=== PATIENT | male | born 1950 | race Caucasian/White ===

== ENCOUNTER 2017-04-20 15:46 | Inpatient (IN) | payer MEDICARE, OTHER ==
[~2017-04-20] VITALS: Ht 177.8 cm; Wt 110.0 kg
--- NOTE | ~2017-04-20 | CATH ---
Cardiac Diagnostic Report Demographics Patient Name RADHA Jack Gender Male Date of 1950 Age 67 year(s) Patient Number [id number] Date of Study 04/20/2017 Visit Number [id number] Room Number G6[address] [place] [id number] Ht 177.8 cm Wt 111.9 kg Referring [facility] Hugo Primary Physician Physician Paty Stroud [facility] Performing Paty Secondary Physician Physician Maximus Diagnostic Paty Assisting Physician Physician Maximus Interventional Physician Paint Line Production Supervisor Physician Findings and Conclusions Diagnostic Findings and Conclusion Indication for cath: NSTEMI, Unstable angina Findings: L Main: No significant epicardial disease LAD: mid 20-30% stenosis Dx: 2nd diagonal has mid 70% stenosis, small caliber vessel Cx: Mild luminal irregularities, small caliber vessel RCA: Dominant; No significant epicardial disease LVEDP 11 Images were also reviewed with Dr Chawla. Diagnostic Recommendations Medical treatment Procedure Description The patient was brought to the diagnostic cardiac catheterization-EP laboratory in the fasting, non-sedated state. Informed consent was obtained in the written and verbal form after the risks and benefits were explained. The patient had no further questions and agreed to proceed. The planned puncture-incision site(s) were shaved and prepped with ChloraPrep and draped in the usual sterile manner. Conscious sedation, supplemental oxygen, and pain control medications were delivered by a registered nurse under physician guidance. Surface ECG rhythm, blood pressure measurement, and pulse oximetry were monitored throughout the procedure. Arterial access. The access site on right wrist was infiltrated with lidocaine. The vessel was entered with the Seldinger technique. A sheath was advanced into the vessel and used for catheter placement. Selective left coronary angiography. A catheter was advanced into the left coronary vessel ostium under Fluoroscopic guidance. Contrast was injected by hand. Images were obtained in multiple projections. Selective right coronary angiography. A catheter was advanced into the right coronary vessel ostium under fluoroscopic guidance. Contrast was injected by hand. Images were obtained in multiple projections. Left heart catheterization. A catheter was advanced across the aortic valve to the left ventricle under fluoroscopic guidance. Resting hemodynamics were obtained. Arterial artery hemostasis was achieved. The patient was transferred to a regular nursing floor via cart accompanied by a nurse. The patient left the laboratory in stable condition. Diagnostic Cath Status: Urgent Procedure Procedure Type Diagnostic procedure:Angiography:, Coronary Angios w/[facility] Indications: Non-ST elevation GA. The procedure was explained in detail to the patient. Risks, complications and alternative treatments were reviewed. Written consent was obtained. Medications Reviewed with Patient prior to Procedure. Angiographic Findings Dominance: Right Cardiac Arteries and Lesion Findings LMCA: Normal (0% Stenosis). LAD: Diagonal 2 small vessel Lesion on Mid LAD: 30% stenosis . Comments:20-30% Lesion on 2nd Diag: Mid subsection.80% stenosis . Comments:70-80% LCx: Cx small vessel, no significant stenosis RCA: Dominant Coronary Tree Procedure Data Procedure Date Date: 04/20/2017Start: 06:30 PMEnd: 07:16 PM Entry Locations - Retrograde Percutaneous access was performed through the Right Radial artery (Primary location). A 6 Fr sheath was inserted. Unsuccessful closure attempt was performed using: an R band. Hemostasis was successfully obtained using Mechanical Compression. Closure Comments: 12 cc of air in the R band.. Procedure Medications Order and Administration + + + +-------+ !Time !Medication !Dosage !Route ! + + + +-------+ !04/20/2017 06:28 PM !Versed !1 mg !I.V. ! + + + +-------+ !04/20/2017 06:29 PM !Fentanyl !50 mcg !I.V. ! + + + +-------+ !04/20/2017 06:40 PM !Radial Nitroglycerin !200 mcg !I.A. ! + + + +-------+ !04/20/2017 06:41 PM !Radial Verapamil !1.25 mg !I.A. ! + + + +-------+ !04/20/2017 06:47 PM !Heparin (ACC_3) !5000 units !I.V. ! + + + +-------+ Devices Used - A5 Fr. BS JL 3.5 Diag. Catheterwas used for:Left coronary angiography. - A5 Fr. BS JR 4 Diag. Catheterwas used for:Right coronary angiography. Contrast Material - Isovue 76219 ml Fluoroscopy Time: Diagnostic: 7:54 minutes. Total: 7:54 minutes. Fluoroscopy Dose: Diagnostic: 1122 mGy. Total: 1122 mGy. Estimated Blood Loss: 10 ml. Medical History Allergies - No known allergies. Risk Factors The patient risk factors include:hypercholesterolemia, hypertension, family history of premature CAD, chronic lung disease, dyslipidemia and former tobacco use. Admission Data Admission Date: 04/20/2017 Admission Time: 03:46 PM Insurance Payors: Medicare. Clinical Evaluation Leading to Procedure - The patient's CAD presentation was assessed as: Non-STEMI. - The patient's anginal syndrome during the past two weeks was assessed as: Class IV according to the [employer] Cardiovascular Society Classification System (CCS). Anti-anginal medications were prescribed during the past two weeks. The medication is: Beta Blockers. Hemodynamics Condition: Rest O2 Consumption: Estimated: 261.03Heart Rate: 66 bpm Pressures (mmHg) +-----+ + !Site !Pressure ! +-----+ + !AO !161/97 (125) ! +-----+ + !AO !152/98 (123) ! +-----+ + !LV !172/1 ,12 ! +-----+ + !LV !165/1 ,11 ! +-----+ + !AO !172/115 (130) ! +-----+ + !AO !163/80 (116) ! +-----+ + Valve Gradients and Areas + +---------+---------+---------+ +---------+ + !Valve !Peak !Mean !Area !Index !Flow !Source ! + +---------+---------+---------+ +---------+ + !Other !0 ! ! ! ! ! ! + +---------+---------+---------+ +---------+ + !Other !0 ! ! ! ! ! ! + +---------+---------+---------+ +---------+ + Shunts Oxygen Values O2 Consumption 261.03 Signatures dtt: MAXIMUS KHAN dtd: 04/20/17 1830 Physician Self Edit
--- NOTE | ~2017-04-20 | DS ---
PATIENT'S NAME: LUCAS GARCIA [facility] AGE: 67 Y [address] ROOM: [address] [place], [place] [address] LOCATION: GPCU ADMIT DATE: 04/20/2017 Discharge Summary DISCHARGE DATE: 04/23/2017 FAMILY PHYSICIAN: Zina Simpson MD ATTENDING PHYSICIAN: Jose Linder FINAL DIAGNOSES: 1. Wce-GP-lxjssfbef myocardial infarction. 2. Hypertension. 3. Stage 3 chronic kidney disease. 4. Gastroesophageal reflux. 5. Gout. PROCEDURES: He had a heart catheterization with Dr. Newman, which showed nonobstructive disease on April 20. HISTORY OF PRESENT ILLNESS: For details of admission, please see the history and physical dictated by Dr. Tinoco, but in short, the patient presented with complaints of elevated blood pressure and he has had some constant substernal chest pain. He was initially seen in the [facility] and noted to have elevated troponins and subsequently sent to our facility. LABORATORY DATA: On admission, sodium 144, discharge 141; potassium on admission 3.7, discharge 3.5; BUN on admission was 27, discharge 28; creatinine on admission was 1.3, it stayed stable on discharge. On admission, AST was 91, discharge 50; ALT on admission was 42, discharge 34; cholesterol was 160; triglycerides 200; HDL 41; and LDL 79. Troponin initially was 23.4, it did trend downward most prior to discharge it was 8.3. On admission, white blood cell count 9.6, hemoglobin 14.3, hematocrit 43.5, and platelet count 180. Hemoglobin at discharge 13.2. Cardiovascular studies and echocardiogram showed his ejection fraction to be 55% to 60%. He had left ventricular hypertrophy. Cardiac catheterization done by Dr. Newman showed that he had 20% to 30% LAD, 70% second diagonal. RADIOLOGY STUDIES: Chest x-ray on admission did not show any acute process. HOSPITAL COURSE: The patient was accepted in transfer from [place]. He was admitted to PCU, started on an acute coronary protocol, and was given IV heparin. He was taken to the cath lab technologist by Dr. Newman. Please see Dr. Newman's note for full details. Post cath, he returned to PCU and was initiated on medications for his blood pressure. He was started on Plavix. His cardiac enzymes were trended downward. His blood pressures were difficult to control and received IV medications and adjustments were made throughout the hospital stay. PT/OT was asked to see him. An echocardiogram was obtained, results of which had been given. It was felt that the patient was stable for discharge PATIENT'S NAME: LUCAS GARCIA [facility] AGE: 67 Y [address] ROOM: [place] [address] LOCATION: GPCU ADMIT DATE: 04/20/2017 Discharge Summary DISCHARGE DATE: 04/23/2017 FAMILY PHYSICIAN: Zina Simpson MD ATTENDING PHYSICIAN: Jose Linder and discharged to home on the . Follow up with Dr. Verma in [place] on this following Sunday. He will see Dr. Zina Simpson, is primary care provider in 5 to 7 days. He is to follow a low-sodium diet. He is not to lift greater than 10 pounds. DISCHARGE MEDICATIONS: 1. Allopurinol 100 mg twice daily. 2. Norvasc 5 mg twice daily. 3. Aspirin 81 mg daily. 4. Lipitor 80 mg daily. 5. Plavix 75 mg daily. 6. Imdur 30 mg daily. 7. Synthroid 125 mcg daily. 8. Singulair 10 mg daily. 9. Multivitamin daily. 10. Metoprolol 100 mg twice daily. 11. Prinivil 10 mg twice daily. 12. Omeprazole 20 mg daily. 13. Carafate 1 g 4 times daily. 14. Tylenol 1000 mg 3 times daily as needed for pain. 15. Ovia-fkl-kbhtgiy sleep medication as per home. 16. Zyrtec 10 mg daily. 17. Probiotic 1 tablet daily. 18. Lasix 20 mg daily. OVERALL PROGNOSIS: At discharge was good. KENDRICK DIANE MD LAW/modl /[id number] CC: MD Zina Peguero MD d: 04/24/17 2312 t: 04/29/17 1626, DISCHARGE SUMMARY
--- NOTE | ~2017-04-20 | CON ---
PATIENT'S NAME: LUCAS GARCIA [facility] AGE: 67 Y [address] ROOM: [place] [address] LOCATION: GPCU ADMIT DATE: 04/20/2017 Consultation DISCHARGE DATE: FAMILY PHYSICIAN: PHYSICIAN, UNKNOWN ATTENDING PHYSICIAN: TREVA LINDER DATE OF CONSULTATION: 04/20/2017 REFERRING PHYSICIAN: Treva Linder MD REASON FOR CONSULT: Ipb-LP-ezxonzauw IA. HISTORY OF PRESENT ILLNESS: Mr. Garcia is a pleasant 67-year-old male who was transferred from [place] [facility]. The patient stated he had been having chest pain since yesterday and he was evaluated in [place] [facility]. The patient was found to have elevated troponin and hence Cardiology was consulted. He was also noted to have EKG changes with T-wave inversion in anterior leads. The patient apparently had cardiac catheterization in September 2016 and was found to have minimal nonobstructive coronary artery disease. The patient was started on heparin and nitro drip and he continues to have chest pain. He denied any shortness of breath. REVIEW OF SYSTEMS: He denied any change in vision. No history of nausea, vomiting, diarrhea, or constipation. No history of fever. No history of cough or expectoration. No history of leg pains or leg cramps. No history of abdominal pain. Review of other systems was essentially negative. PAST MEDICAL HISTORY: Hypertension. PERSONAL HISTORY: Nonsmoker. FAMILY HISTORY: The patient stated his father had IA. SOCIAL HISTORY: The patient is . CURRENT MEDICATIONS: 1. Allopurinol 100 mg twice daily. 2. Aspirin 81 mg daily. 3. Atorvastatin 20 mg daily. PATIENT'S NAME: LUCAS GARCIA [facility] AGE: 67 Y [address] ROOM: [address] [address] LOCATION: GPCU ADMIT DATE: 04/20/2017 Consultation DISCHARGE DATE: FAMILY PHYSICIAN: PHYSICIAN, UNKNOWN ATTENDING PHYSICIAN: TREVA LINDER 4. Cetirizine. 5. Diphenhydramine. 6. Lasix 20 mg daily. 7. Levothyroxine 125 mcg daily. 8. Lisinopril 40 mg twice daily. 9. Metoprolol 50 mg twice daily. 10. Montelukast. 11. Omeprazole. 12. Sucralfate. PHYSICAL EXAMINATION: GENERAL: The patient is awake, alert, and oriented. VITAL SIGNS: His pulse rate is 56 beats per minute. Blood pressure is 140/80. In [place], his blood pressure was 200 mmHg systolic. Respiratory rate is 18. HEENT: His head is atraumatic and normocephalic. NECK: No significant jugular venous distention is present. CARDIOVASCULAR: S1 and S2 are audible. They are regular in rate and rhythm with no audible murmur. RESPIRATORY: Bilateral vesicular breath sounds are audible. ABDOMEN: Abdomen is soft and nontender. Bowel sounds are present. EXTREMITIES: Showed trace bilateral pedal edema. NEUROLOGIC: He is awake, alert, and oriented. SKIN: Skin is warm and dry. LABORATORY DATA: His EKG showed sinus bradycardia at 56 beats per minute, T-wave inversion in anterior leads. His troponin was 2.77, BUN 27, creatinine 1.43, ALT 37, AST 38, sodium 144, and potassium 4.3. White blood cell count 8.14, hemoglobin 15.1, and platelet count 204. Magnesium 2.2. ASSESSMENT: 1. Ibn-SQ-zyawgpsyl myocardial infarction. 2. Unstable angina. 3. Hypertension. 4. Chronic kidney disease. 5. Obesity. 6. Gastroesophageal reflux disease. PLAN: In view of persistent chest pain despite being on heparin and nitro drip, we will proceed with left heart catheterization. Discussed with the patient risks and benefits of the left heart catheterization. The patient is agreeable to proceed with it. We will continue medical therapy with heparin and nitro drip. Continue beta-blockers and statin and aspirin. We will make PATIENT'S NAME: LUCAS GARCIA [facility] AGE: 67 Y [address] ROOM: [address] [place], [place] [address] [facility] ADMIT DATE: 04/20/2017 Consultation DISCHARGE DATE: FAMILY PHYSICIAN: PHYSICIAN, UNKNOWN ATTENDING PHYSICIAN: TREVA LINDER further recommendations depending on cardiac catheterization findings. We will also obtain 2D echocardiogram in a.m. The plan of care was discussed with nursing, Dr. Tinoco, and with the patient and his . MD JANI JACOBS/moel /[id number] d: 04/20/172119 t: 05/03/17 1037, CONSULTATION REPORT
--- NOTE | ~2017-04-20 | HP ---
PATIENT'S NAME: LUCAS GARCIA [facility] AGE: 67 Y [address] ROOM: [address] [address] LOCATION: GPCU ADMIT DATE: 04/20/2017 History & Physical DISCHARGE DATE: FAMILY PHYSICIAN: PHYSICIAN, UNKNOWN ATTENDING PHYSICIAN: TREVA FITZGERALD DATE OF SERVICE: CHIEF COMPLAINT: Chest pain. HISTORY OF PRESENT ILLNESS: The patient is a 67-year-old gentleman with past medical history of hypertension and obesity, who presented here from [facility] with elevated troponin and chest pain. The patient reports that since Sunday, he had been having an elevated systolic blood pressure in the 140s to 170s. The patient also reports of a constant substernal chest discomfort. He reports it as pressure-like. The pain does not radiate. It is not associated with shortness of breath and diaphoresis, and also there is no exacerbating or alleviating factor. The patient was seen in the [facility] today and was noted to have an elevated troponin of 2.7, and was transferred to our hospital for further evaluation. The patient has had coronary angiogram done in the beginning of this year, which was unremarkable. The patient thinks that his chest pain is secondary from his hiatal hernia. The patient denies any productive cough, fever, chills, shortness of breath, abdominal pain, nausea, vomiting, diarrhea, and dizziness. MEDICAL HISTORY: 1. Hypertension. 2. GERD. 3. Obesity. 4. Gout. SURGICAL HISTORY: 1. Total knee replacement. 2. Right shoulder surgery. 3. Hernia repair. 4. Carpal tunnel surgery. FAMILY HISTORY: Dad of cardiac event at age 77. Sister has history of pacemaker placement and diabetic. Mother has a history of hypertension and dementia. PATIENT'S NAME: LUCAS GARCIA [facility] AGE: 67 Y [address] 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 He denies smoking and seldomly drinks. REVIEW OF SYSTEMS: All systems have been reviewed and are negative except for what I mentioned in HPI. MEDICATIONS: Currently being reconciled. PHYSICAL EXAMINATION: VITAL SIGNS: Afebrile, blood pressure of 147/86, heart rate of 62, respiratory rate of 14, and saturating of 97% on room air. GENERAL APPEARANCE: The patient is alert and awake, in no acute distress. HEAD: Normocephalic and atraumatic. EYES: Extraocular muscles are intact. NOSE: No nasal discharge. EARS: No ear discharge. MOUTH: Moist oral mucosa. CHEST: Clear to auscultation bilaterally. HEART: Regular rate and rhythm. No murmurs, rubs, or gallops were heard. ABDOMEN: Soft, nontender, and nondistended. Bowel sounds are present. SKIN: Warm to touch. MUSCULOSKELETAL: Range of motion was intact. No obvious joint effusion was noted. CENTRAL NERVOUS SYSTEM: The patient is alert and oriented x3. Motor and sensory were grossly intact. LABORATORY DATA: Labs from [place] shows sodium of 144, potassium of 4.3, creatinine of 1.43, and BUN of 27. Troponin of 2.7. DIAGNOSTIC STUDIES: EKG shows normal sinus rhythm with T-wave inversion in 1 aVL and V3 to V6. ASSESSMENT AND PLAN: 1. Wro-NU-exyulpv elevation myocardial infarction. The patient is presenting with elevated troponin and EKG changes, NUSRAT score of 4, and 20% risk of fourteen days all cause mortality, new or recurrent myocardial infarction, or severe recurrent ischemia requiring urgent revascularization. The patient is on aspirin. We will increase the Lipitor to 40 mg. To continue Lopressor 50 mg b.i.d. To continue heparin drip. Cardiology is on board, possible coronary angiogram. PATIENT'S NAME: LUCAS GARCIA [facility] AGE: 67 Y [address] ROOM: [address] [place], [place] [address] [facility] AD[facility] DATE: 04/20/2017 History & Physical DISCHARGE DATE: FAMILY PHYSICIAN: PHYSICIAN, UNKNOWN ATTENDING PHYSICIAN: TREVA FITZGERALD 2. Acute kidney injury. The patient was recently started on Lasix. He appears well compensated. We will hold lisinopril and Lasix for now. We will give the patient IV fluids before his coronary angiogram. 3. Hypertension, stable. To continue Lopressor. We will hold Lasix and lisinopril for now due to above reasons. 4. Obesity, ongoing. 5. Gout, on allopurinol. Greater than 40 minutes was spent on patient care. Assessment and plan was discussed with the patient. Code status was discussed with the patient. Code status is full code. Also, case was discussed with Cardiology, Dr. Newman. MD ROMINA WOODY/casandra /[id number] D: T: HISTORY & PHYSICAL
--- NOTE | ~2017-04-20 | ECHO ---
Transthoracic Echocardiography Report (TTE) Demographics Patient Name LUCAS GARCIA Date of Study 04/21/2017 Patient Number [id number] Visit Number [id number] Date of 1950 Room Number G6305 Gender Male Number Age 67 year(s) Referring Paty Elevator Runner Monisha KNIGHTT, Physician Maximus [facility] Physician Interpreting Paty Stroud Computer Typesetter Keyliner Physician Supervising Ordering Paty Stroud MD/MLP Physician Nurse Stress Residential Door Unit Installer Conclusions Contractility Score Summary Normal Left Ventricular contractility was noted. Summary The estimated left ventricular ejection fraction is 55-60%. Mild concentric left ventricular hypertrophy. Procedure Type of Study TTE procedure:2D Echocardiogram. Procedure Date Date: 04/21/2017 Start: 01:27 PM Study Location: Inpatient Portable Technical Quality: Good visualization Indications:Myocardial infarction. Appropriate Use Criteria: 8 Patient Status: Routine Rhythm: NSR HR: 73 bpm BP: 155/90 mmHg Allergies - No known allergies. M-Mode/2D Measurements LV Diastolic Dimension: 4.83 cm LV Systolic Dimension: 2.87 cm LV Septum Diastolic: 1.32 cm LV PW Diastolic: 1.2 cm AO Root Dimension: 3.3 cm Cardiac Output: 7.49 l/min AV Cusp Separation: 2 cm RV Diastolic Dimension: 3.23 cm LA volume: 69 ml LVOT: 2.3 cm RV Base: 2.75 cm LVOT VTI: 24.7 cm RV Mid: 3.15 cm LV Stroke volume: 102.57 ml TAPSE: 2.27 cm TDI-S': 13.3 cm/s Doppler Measurements AV Peak Velocity: 1.38 m/s MV Peak E-Wave: 0.81 m/s AV Peak Gradient: 7.62 mmHg MV Peak A-Wave: 0.63 m/s AV Mean Gradient: 4 mmHg MV E/A Ratio: 1.3 LVOT Peak Velocity: 1 m/s MV P1/2t: 60 msec PV Peak Velocity: 0.88 m/s E' Septal Velocity: 0.06 m/s PV Peak Gradient: 3.11 mmHg E' Lateral Velocity: 0.09 m/s A' Septal Velocity: 0.11 m/s A' Lateral Velocity: 0.12 m/s Findings Left Ventricle Mild concentric left ventricular hypertrophy. Diastolic function indeterminate due to inadequate tissue doppler evaluation Right Ventricle Normal right ventricle structure and function. Left Atrium The left atrium is mildly dilated. There is no evidence of patent foramen ovale or atrial septal defect by color Doppler. Right Atrium Normal right atrial size. IVC measures 2.56 cm with inspiratory collapse. Mitral Valve Mild mitral annular calcification. Aortic Valve The aortic valve is mildly sclerotic. Tricuspid Valve Normal tricuspid valve structure and function. Pulmonic Valve Normal pulmonic valve structure and function. Pericardial Effusion No evidence of pericardial effusion. Miscellaneous Visualized portions of the aortic root and ascending aorta appear normal in size. Pleural Effusion No evidence of pleural effusion. Contractility Score LV regional wall motion:(0-Non visualized 1-Normal 2-Hypokinesis 3-Akinesis 4-Dyskinesis 5-Aneurysm) Signature dtt: MAXIMUS KHAN dtd: 04/21/17 1327 Physician Self Edit
[~2017-04-20 15:46] MED LIST: ASPIRIN (CHILDR81 MG PO; ASPIRIN325 MG PO; CARAFATE1 GM PO; CLARITIN10 MG PO; COLACE100 MG PO; COQ-1030 MG PO; FLOMAX0.4 MG PO; LIPITOR80 MG PO; MILK OF MA400 MG/5 M PO; MIRALAX17 GM PO; MULTIVITAMINS1 EAC1 PO; NORVASC10 MG PO; OMEPRAZOLE20 M1 PO; OXYBUTYNIN CHLOR5 MG PO; PRINIVIL (ZESTR20 MG PO; PRINIVIL OR ZES10 MG PO; PROSTATE HEALT1 EACH PO; PROVENTIL OR V6.7 GM INH; ROXICODONE5 MG PO; SINGULAIR10 MG PO; SLEEP AID50 MG PO; TOPROL XL 5050 MG PO; TYLENOL ARTHRI650 MG PO; TYLENOL EXTRA500 MG PO; ULTRAM50 MG PO; VESICARE5 MG PO; XARELTO10 MG PO; ZYLOPRIM100 MG PO; ZYRTEC10 MG PO
[2017-04-20] MEDS ORDERED: LOPRESSOR100 MG PO (16:33)
[2017-04-20] MEDS ORDERED: PROBIOTIC1 EAC1 PO (16:37)
[2017-04-20] MEDS ORDERED: LEVOTHROID (S125 MCG PO (16:37)
[2017-04-20] MEDS ORDERED: [UNRECOGNIZED DRUG - OTHER] PO (16:39)
[2017-04-20] MEDS ORDERED: LASIX20 MG PO (16:39)
--- NOTE | 2017-04-20 16:46 | NUR ---
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 no allergies. CAme via ambulance from [place]. Hx htn,hypercholest,asthma,hiatal hernia,gerd,heartburn, nocturia,urgency,eczema.
[2017-04-20 18:16] LABS: ALBUMIN 3.8 gm/dL (3.5-5.0); ANION GAP 12.7 (10.0-19.0); CALCIUM 8.6 mg/dL (8.5-10.5); CREATININE 1.3 mg/dL (0.6-1.3); POTASSIUM 3.7 mMol/L (3.7-5.1); TOTAL BILIRUBIN 1.1 mg/dL (0.0-1.5); TOTAL PROTEIN 7.4 g/dL (6.0-8.4)
--- NOTE | 2017-04-20 19:49 | NUR ---
A&Ox3. C/O chest pain 09/19. Has had chest pain 01/17 since 04/15/17. Heart cath today. Off floor at end of shift.
--- NOTE | 2017-04-20 19:51 | NUR ---
A&Ox3. C/O chest pain 09/19. Has had chest pain 01/17 since 04/15/17. IV to L) AC. Admitted with Heparin @ 1000units, NS @ 60ml/hr, and Nirto @ 5mcg. Started Lasix 04/16/11. C/O dizziness, bradycardy, HTN since Lasix started. Heart cath this shift. Off floor at end of shift. 8
[2017-04-20 23:42] LABS: BASOPHIL # 0.1 K/uL (0.0-0.2); BASOPHIL % 0.7 %; EOSINOPHIL # 0.9 K/uL (0.0-0.5); EOSINOPHIL % 8.9 %; HEMATOCRIT 43.5 % (37.0-53.0); HEMOGLOBIN 14.3 g/dL (11.0-16.0); IMMATURE GRANULOCYTE % 0.2 %; LYMPHOCYTE # 2.1 K/uL (0.8-4.0); LYMPHOCYTE % 21.7 %; MCHC 32.9 gm/dL (32.0-36.5); MCV 91.2 fl (83.0-98.0); MONOCYTE # 0.8 K/uL (0.0-1.0); MONOCYTE % 8.2 %; MPV 10.4 fl (9.4-12.4); NEUTROPHIL # (ANC) 5.8 K/uL (1.4-9.0); NEUTROPHIL % 60.3 %; NRBC % 0 /100WBC (0-0.00); PLATELET COUNT 180 K/uL (150-450); RBC 4.77 M/uL (3.50-5.50); RDW-CV 13.8 % (11.9-14.6); WBC 9.6 K/uL (4.0-11.0)
[2017-04-20 23:52] LABS: INR - (THERAPEUTIC) 0.97 (0.92-1.07); PROTIME 10.2 SECONDS (9.8-11.4)
--- NOTE | 2017-04-21 05:10 | NUR ---
Significant Event: Pt A&Ox3. VS stable, remains on RA. Pt was running elevated BP's at the beginning of shift. Nitro started. Gave a 1 time dose of 10mg hydralazine. Nitro stopped. Has PRN hydralazine if needed. No c/o pain. PIV LAC, heparin running. Cardiac enzymes q6h x3. Has not ambulated yet. Follow up: Continue plan of care. Next draw for PTT 0700.
[2017-04-21 06:22] LABS: ALBUMIN 3.5 gm/dL (3.5-5.0); ANION GAP 11.6 (10.0-19.0); CALCIUM 8.4 mg/dL (8.5-10.5); CREATININE 1.1 mg/dL (0.6-1.3); POTASSIUM 3.6 mMol/L (3.7-5.1); TOTAL BILIRUBIN 1.2 mg/dL (0.0-1.5); TOTAL PROTEIN 6.8 g/dL (6.0-8.4)
--- NOTE | 2017-04-21 16:32 | NUR ---
A&O. 1PA. C/O CX PAIN IN AM, BETTER NOW. C/O OF BOOKER FROM NITRO GTT AT 5 MCG. HEP GTT AT 1200. STOPED NITRO AT 1545. TYLENOL X1. LS CLEAR. BS ACTIVE. VD PER URINAL. SBP 150'S. HR 60'S-80'S. RA. AFEBRILE. TRENDING ENZYMES. AT BEDSIDE.
--- NOTE | 2017-04-22 04:50 | NUR ---
Significant Event: Pt A&Ox3. VS stable, remains on RA. BP's have been consistantly in the 150's. DBP has been remaining in the 80's-90's. HR's stable in the 60's. Added 50mg lopressor QID. Has remained off of nitro since start of shift. Heparin running at 1300 units/hr. No c/o pain. Follow up: Discharge today?
[2017-04-22 05:23] LABS: ALBUMIN 3.5 gm/dL (3.5-5.0); ANION GAP 10.8 (10.0-19.0); CALCIUM 8.7 mg/dL (8.5-10.5); CREATININE 1.1 mg/dL (0.6-1.3); POTASSIUM 3.8 mMol/L (3.7-5.1); TOTAL BILIRUBIN 1.4 mg/dL (0.0-1.5)
--- NOTE | 2017-04-22 16:52 | NUR ---
A&O. SBA. SBP 140'S-150'S. HR 60'S-80'S. RA. LS CLEAR. BM TODAY. VD PER BR. AMB IN [place]. SHOWERED TODAY. DC HEP. SL TO L FA. NITRO OFF. NO C/O PAIN. FAMILY AT BEDSIDE. PLAN HOME TOMORROW.
--- NOTE | 2017-04-23 04:10 | NUR ---
A/O. HR 50-60s. SBP 120-150s. AFEBRILE. ROOM AIR. DENIES CHEST PAIN. R) WRIST SOFT, NONTEDNDER, OPEN TO AIR. TYLENOL FOR HEADACHE RELIEF NOTED. SBA UP TO [facility]. NO BM. POSSIBLE DISMISSAL TODAY.
[2017-04-23 04:31] LABS: BASOPHIL # 0.1 K/uL (0.0-0.2); BASOPHIL % 0.6 %; EOSINOPHIL % 10.7 %; HEMATOCRIT 39.5 % (37.0-53.0); HEMOGLOBIN 13.2 g/dL (11.0-16.0); IMMATURE GRANULOCYTE % 0.2 %; LYMPHOCYTE # 1.6 K/uL (0.8-4.0); LYMPHOCYTE % 17.5 %; MCH 30.4 pg (27.0-34.0); MCHC 33.4 gm/dL (32.0-36.5); MONOCYTE # 0.9 K/uL (0.0-1.0); MONOCYTE % 9.8 %; MPV 10.5 fl (9.4-12.4); NEUTROPHIL # (ANC) 5.4 K/uL (1.4-9.0); NEUTROPHIL % 61.2 %; NRBC % 0 /100WBC (0-0.00); PLATELET COUNT 184 K/uL (150-450); RBC 4.34 M/uL (3.50-5.50); RDW-CV 13.9 % (11.9-14.6); WBC 8.9 K/uL (4.0-11.0)
[2017-04-23 04:50] LABS: ALBUMIN 3.3 gm/dL (3.5-5.0); ANION GAP 11.5 (10.0-19.0); CALCIUM 8.4 mg/dL (8.5-10.5); CREATININE 1.3 mg/dL (0.6-1.3); POTASSIUM 3.5 mMol/L (3.7-5.1); TOTAL BILIRUBIN 1.4 mg/dL (0.0-1.5); TOTAL PROTEIN 6.6 g/dL (6.0-8.4)
[2017-04-23] MEDS ORDERED: NORVASC2.5 MG PO (12:02)
[2017-04-23] MEDS ORDERED: PLAVIX75 MG PO (12:08)
[2017-04-23] MEDS ORDERED: ISORDIL30 MG PO (12:09)
--- NOTE | 2017-04-23 14:23 | NUR ---
PATIENT DISMISSED TO HOME W/ PER PRIVATE AUTO. PATIENT TRANSFERED TO CAR BY RN. REVIEWED DISMISSAL INSTRUCTIONS WITH PATIENT, INCLUDING RADIAL HEART CATH SITE CARE INSTRUCTIONS, PATIENT VERBALIZED UNDERSTANDING. GAVE PATIENT INFO SHEETS ON NEW MEDICATIONS. PATIENT STATES HAS NO FURTHER QUESTIONS.
== END 2017-04-23 13:30 | disposition disaster alternative care site (69) | DRG 281 ==
LOC: GPCU 15:46
PROVIDERS: Internal Medicine; Internal Medicine Interventional Cardiology; ADMIT Internal Medicine
PROC: 4A023N7 Measurement of Cardiac Sampling and Pressure, Left Heart, Percutaneous Approach (ICD-10-PCS; principal; 2017-04-20)
PROC: B211YZZ Fluoroscopy of Multiple Coronary Arteries using Other Contrast (ICD-10-PCS; 2017-04-20)
DX: I21.4 Non-ST elevation (NSTEMI) myocardial infarction (principal); N17.9 Acute kidney failure, unspecified; E03.9 Hypothyroidism, unspecified; E78.5 Hyperlipidemia, unspecified; I25.10 Atherosclerotic heart disease of native coronary artery without angina pectoris; K21.9 Gastro-esophageal reflux disease without esophagitis; M10.9 Gout, unspecified; I13.10 Hypertensive heart and chronic kidney disease without heart failure, with stage 1 through stage 4 chronic kidney disease, or unspecified chronic kidney disease; N18.3 Chronic kidney disease, stage 3 (moderate); Z79.82 Long term (current) use of aspirin; E66.9 Obesity, unspecified; Z68.35 Body mass index [BMI] 35.0-35.9, adult
CPT/HCPCS: A9270; C1769; J0360; J1644; J2250; J2270; J2405; J3010; J7030